=== PATIENT | male | born 1950 | race Caucasian/White ===

== ENCOUNTER → 2016-12-05 | Outpatient (CLI) | payer BC ==
[2015-12-09 14:10] VITALS: BP 135/75; PULSE 84
[~2016-12-05] MED LIST: AMLO-110 PO; AMLO2.5T PO; CETI10TA84 PO; CLIN1LOT TOP; DEXT30TA7 PO; DTRSR/10 PO; FLUO20CA35 PO; FLUT1INH INH; LOSA100T65 PO; METO-478 PO; MULT-845 PO; RTXI100 IV; VALA500T60 PO
[2016-12-05 13:13] VITALS: BP 146/80; PULSE 72; TEMP 36.6; O2SAT 96
[2016-12-05 15:07] LABS: URINE APPEARANCE CLEAR (CLEAR); URINE BILIRUBIN NEG (NEG); URINE COLOR YELLOW; URINE NITRITE NEG (NEG); URINE PH 5.5 (4.5-7.5); URINE SPECIFIC GRAVITY 1.009 (1.000-1.030); UROBILINOGEN NEG (NEG)
[2016-12-05 15:18] LABS: MANUAL MICROSCOPIC REQUIRED? NO; REVIEW REQ? NO
--- NOTE | 2016-12-05 17:42 | Radiation Oncology Follow-Up ---
Radiation Oncology Follow-Up Date of Visit Dec 05, 2016. Reason For Visit Annual follow-up Radiation Completion Date 05/03/15 Diagnosis (1) Prostate cancer Status: Resolved Onset Date: 06/01/2014 Location: both lobes of the prostate Histology Subtype: adenocarcinoma Stage: lll Permanent Comment: Rise in PSA pretreatment PSA 5.51 Clinical stage T2a Status post ultrasound-guided biopsies, biopsy stage T2c Status post robotic prostatectomy 09/23/2014 Pathologic stage pT3a pN0 M0 Post prostatectomy rising PSA to 0.119 Status post completion of salvage radiation therapy 05/03/2015 received 7040 cGy Mantle cell lymphoma Completing systemic chemotherapy and plan for maintenance Rituxan Last Edited By: Octavia Lauren on Dec 09, 2015 15:56 History of Present Illness Mr. Souza has a 66-year-old male without a family history of prostate cancer. He is been followed with serial prostatespecific antigens. In August 2000 prostate-specific antigen was 1.14. In July 2012 3.02. 12/30/2013 prostatespecific antigen had increased to 4.28. 02/10/2014 prostate-specific antigen 4.47 and prostate-specific antigen 5.51. Because of these changes the patient was sent for evaluation to Dr. Gibbons. Dr. Gibbons performed a digital rectal exam which revealed a nodule in the right side of the prostate. He was staged as a clinical stage T2a. Biopsies were therefore recommended. On 06/01/2014 ultrasound-guided biopsies were performed. A total of 14 biopsies were taken. Two each from the left base, right base, left mid, right mid, left apex, right apex and one each from the left and right anterior. 2 of 2 biopsies from the left base were positive for an adenocarcinoma Shayne grade of 3+3 involving 25% and 5% of the core tissue sample respectively with no evidence of perineural invasion. One of 2 biopsies from the right base were positive for an adenocarcinoma Shayne grade of 4+4 involving 20% of the core tissue sample with no perineural invasion identified. 2 of 2 biopsies in the left mid gland revealed adenocarcinoma Shayne grade of 3+3 involving 10% of the core tissue with no perineural invasion identified. 2 of 2 biopsies in the right mid gland revealed an adenocarcinoma Shayne grade of 4+4 involving 50% of the core tissue with a single focus highly suspicious for vascular invasion and for perineural invasion. 2 of 2 biopsies from the left apex were positive for an adenocarcinoma Shayne grade of 3+4 involving 20% of the total tissue with no perineural invasion identified. 2 of 2 biopsies in the right apex were positive for an adenocarcinoma Shayne grade of 4+3 involving 60% of the core tissue with no perineural invasion identified. The single biopsy from the left and right anterior gland were benign. Therefore a total of 11 of 14 biopsies were positive. 4 biopsies were positive for 3+3, 2 biopsies were positive for [place] grade 3+4, two biopsies were positive for Shayne grade 4+3 and 3 biopsies were positive for Shayne grade 4+4. Case: [id number]. Patient had a staging workup including a whole body bone scan on June 12 which showed no evidence of metastatic disease. He also underwent a CT scan of the abdomen and pelvis which revealed some prostatic enlargement with calcifications and enlargement of the seminal vesicles but no evidence of metastatic disease. The patient is in the process of deciding on his treatment options. We were asked to see him to review with him his radiation treatment options. All options of treatment were reviewed with the patient and ultimately he made decision to undergo a prostatectomy. He had this performed at [facility] by Dr. Ambrocio Nava. He underwent a robotic prostatectomy on 09/23/2014. This revealed adenocarcinoma with a Shayne of 4+3. The primary Shayne pattern was 4. The secondary [place] pattern was 3. The tertiary [place] pattern was 5. There was a pelvic lymph node dissection. 10 lymph nodes were evaluated and were negative for metastatic disease. The margins were uninvolved by tumor. Pathologic stage was [id number] Following his prostatectomy Dr. Gibbons followed his PSAs. His PSA on 2014 was 0.97. The PSA on 11/12/2014 was 0.102 and the PSA on 11/27/2014 was 0.119. With a rising PSA he was referred to our office to discuss radiation therapy. He completed salvage radiation therapy 05/03/2015 and received 7040 cGy. He tolerated this well and at the end of treatment his AUA score was 11. Hormonal suppression was declined. Interim History Today he completed an AUA score sheet and gave a score of 3. Last year he gave a score of 12. These symptoms have greatly improved. He completed expanded prostate cancer index composite for clinical practice and gave a score of 2 of 12 in urinary incontinence symptoms. He gave a score of 2 of 12 in urinary irritation symptoms. He gave a score of 3 of 12 in bowel symptoms. He gave a score of 11 of 12 in sexual symptoms. He gave a score of 4 of 12 and hormonal vitality symptoms. His total was 21 of 60. He continues on the oxybutynin which she feels greatly helps his bladder symptoms. He sees Dr. Nava and has recheck PSAs. His last PSA was 09/08/2016 and this was 0.476. There has been a slow gradual rise in the PSA. This had been checked on a monthly basis through Dr. Grace's office also. With his history of mantle cell lymphoma he has been followed with PET scans. The most recent study was 06/19/2016. This showed no evidence of pathologically enlarged or FDG avid lymphadenopathy. Spleen was mildly enlarged but had decreased in size from 02/07/2016. No abnormal FDG localization is identified in the spleen. Continued decrease in size of a cystic lesion in the ventral left pelvis as compared to 02/07/2016 which has almost completely resolved. There is no abnormal FDG localization within this lesion. He continues on maintenance chemotherapy. He has a recheck PET scan scheduled for tomorrow. He does have mild dysuria at the very end of the penis. This occurs approximately 3 times per week. It is not persistent. He is concerned about possible infection and requested a urine evaluation today. Allergies Coded Allergies: Cortisone (Verified Adverse Reaction, Mild, painful reaction when received a cortisone injection , 07/17/16) Home Medications Scheduled Amlodipine (Norvasc), 2.5 MG PO DAILY Amlodipine (Norvasc), 5 MG PO DAILY Cetirizine (Zyrtec), 10 MG PO DAILY Fluoxetine (Prozac), 20 MG PO QAM Fluticasone Furoate-Vilanterol (Breo Ellipta), 1 PUFF INH DAILY Losartan Potassium (Cozaar), 100 MG PO QAM Metoprolol Succinate (Toprol Xl), 50 MG PO QAM Multiple Vitamins W/ Minerals (Centrum Silver Adult 50+), 1 TAB PO QAM Oxybutynin Chloride (Oxybutynin Chloride ER), 10 MG PO QAM Rituximab (Rituxan), 1 DOSE IV [id number] Valacyclovir (Valtrex), 500 MG PO QAM Scheduled PRN Clindamycin Phosphate (Topical (Cleocin-T), 1 APPLN TOP BID PRN for PRN Dextromethorphan-Guaifenesin (Mucinex Dm), 1 TAB PO Q12 PRN for Nasal Congestion Review of Systems Gastrointestinal: Symptoms: WNL GI Comments: No fiber supplements Oral: Symptoms: No Problems Other Oral Symptoms: Currently has canker sore - trouble eating and swallowing Respiratory: Symptoms: Productive Cough Respiratory Comments: Clear sputum;CPAP for sleep apnea; Sputum Character: Using an inhaler - new to pt;States feels all is improving ; Other Respiratory: Currently with chest congestion- taking OTC cold medicine ; Urinary: Symptoms: WNL Comments: Occass urine leakage of only drops-no pad required;1-2 voids/night ; Skin: Symptoms: No Problems Physical Exam Vital Signs Date Time Temp Pulse Resp B/P Pulse Ox O2 Delivery O2 Flow Rate FiO2 12/05/16 13:13 36.6 72 12 146/80 96 Pain: Side: Left Pain Location: Hemrrhoidal Pain Patient Pain Scale: 0 - 10 Initial Pain Intensity: 8.0 Pain Description: Burning Fatigue: None General Appearance: no apparent distress Eyes: normal inspection, EOMI ENT: normal ENT inspection, hearing grossly normal Neck: + thyroid abnormalities (the thyroid is enlarged. This is especially noted at the isthmus.) Respiratory/Chest: lungs clear, no respiratory distress, no accessory muscle use Cardiovascular: regular rate, rhythm, no gallop, no murmur Abdomen: non tender, soft Anal / Rectum: Rectal examination reveals the prostate bed to be flat. No rectal masses and no rectal bleeding. Neurologic/Psychiatric: no motor/sensory deficits, alert Lymphatic: no adenopathy Laboratory Studies Test 09/08/16 10:25 10/16/16 10:35 11/03/16 11:32 12/05/16 14:15 Lactate Dehydrogenase 168 U/L (87-241) Prostate Specific Antigen 0.476 ng/ml (0.000-4.000) Free Prostate Specific Antigen 0.03 ng/ml Percent Free Prostate Specific Ag % Thyroid Stimulating Hormone (TSH) 0.427 uIu/ml (0.300-4.500) White Blood Count 5.31 K/uL (4.8-10.8) 5.20 K/uL (4.8-10.8) Red Blood Count 4.02 M/uL (4.7-6.1) 4.07 M/uL (4.7-6.1) Hemoglobin 14.0 g/dL (14.0-18.0) 13.9 g/dL (14.0-18.0) Hematocrit 38.1 % (42-52) 38.1 % (42-52) Mean Corpuscular Volume 94.8 fL (80-100) 93.6 fL (80-100) Mean Corpuscular Hemoglobin 34.8 pg (25-34) 34.2 pg (25-34) Mean Corpuscular Hemoglobin Concent 36.7 g/dl (32-36) 36.5 g/dl (32-36) Platelet Count 175 K/uL (130-400) 158 K/uL (130-400) Mean Platelet Volume 9.6 fL (7.4-10.4) 9.6 fL (7.4-10.4) Neutrophils (%) (Auto) 66.3 % 68.7 % Lymphocytes (%) (Auto) 8.3 % 9.2 % Monocytes (%) (Auto) 19.0 % 16.5 % Eosinophils (%) (Auto) 5.8 % 5.2 % Basophils (%) (Auto) 0.4 % 0.2 % Neutrophils # (Auto) 3.52 K/uL (1.4-6.5) 3.57 K/uL (1.4-6.5) Lymphocytes # (Auto) 0.44 K/uL (1.2-3.4) 0.48 K/uL (1.2-3.4) Monocytes # (Auto) 1.01 K/uL (0.11-0.59) 0.86 K/uL (0.11-0.59) Eosinophils # (Auto) 0.31 K/uL (0-0.5) 0.27 K/uL (0-0.5) Basophils # (Auto) 0.02 K/uL (0-0.2) 0.01 K/uL (0-0.2) RDW Standard Deviation 46.0 fL (36.4-46.3) 44.1 fL (36.4-46.3) RDW Coefficient of Variation 13.2 % (11.5-14.5) 12.9 % (11.5-14.5) Immature Granulocyte % (Auto) 0.2 % 0.2 % Immature Granulocyte # (Auto) 0.01 K/uL (0.00-0.02) 0.01 K/uL (0.00-0.02) Sodium Level 140 mmol/L (136-145) 137 mmol/L (136-145) Potassium Level 3.7 mmol/L (3.5-5.1) 3.5 mmol/L (3.5-5.1) Chloride Level 103 mmol/L (98-107) 101 mmol/L (98-107) Carbon Dioxide Level 28 mmol/L (21-32) 30 mmol/L (21-32) Anion Gap 9.0 mmol/L (3-11) 6.0 mmol/L (3-11) Blood Urea Nitrogen 17 mg/dl (7-18) 14 mg/dl (7-18) Creatinine 1.10 mg/dl (0.60-1.40) 1.00 mg/dl (0.60-1.40) Est Creatinine Clear Calc Drug Dose 76.5 ml/min 84.1 ml/min Estimated GFR () 80.6 90.5 Estimated GFR (Non- 69.6 78.1 BUN/Creatinine Ratio 15.4 (10-20) 13.6 (10-20) Random Glucose 87 mg/dl (70-99) 110 mg/dl (70-99) Calcium Level 9.1 mg/dl (8.5-10.1) 8.8 mg/dl (8.5-10.1) Magnesium Level 2.2 mg/dl (1.8-2.4) 2.2 mg/dl (1.8-2.4) Total Bilirubin 0.4 mg/dl (0.2-1) 0.5 mg/dl (0.2-1) Aspartate Amino Transferase (AST) 19 U/L (15-37) 21 U/L (15-37) Alanine Aminotransferase (ALT) 44 U/L (12-78) 46 U/L (12-78) Alkaline Phosphatase 73 U/L (45-117) 75 U/L (45-117) Total Protein 7.2 gm/dl (6.4-8.2) 7.1 gm/dl (6.4-8.2) Albumin 3.9 gm/dl (3.4-5.0) 3.8 gm/dl (3.4-5.0) Globulin 3.3 gm/dl (2.5-4.0) 3.3 gm/dl (2.5-4.0) Albumin/Globulin Ratio 1.2 (0.9-2) 1.2 (0.9-2) Urine Color YELLOW Urine Appearance CLEAR (CLEAR) Urine pH 5.5 (4.5-7.5) Urine Specific [place] 1.009 (1.000-1.030) Urine Protein NEG (NEG) Urine Glucose (UA) NEG (NEG) Urine Ketones NEG (NEG) Urine Occult Blood NEG (NEG) Urine Nitrite NEG (NEG) Urine Bilirubin NEG (NEG) Urine Urobilinogen NEG (NEG) Urine Leukocyte Esterase NEG (NEG) Assessment & Plan Plan: Patient underwent evaluation with urinalysis and urine C&S. He'll be notified as to the results. He is scheduled her for PET scan tomorrow. We discussed the thyromegaly. He stated that this is currently under investigation and being followed. We will review any abnormalities on the PET CT tomorrow. Continue follow-up with urology. He is seeing Dr. Nava in 3 weeks. He stated he usually has a PSA prior to that visit. I told him he should go forward with having the PSA prior to that visit. We asked him to return to our office in 1 year. I will review the thyroid changes with Dr. Grace. Total Time In Follow-Up I spent 20 minutes speaking to the patient and performing examination. I spent 20 minutes reviewing information and completing this note. Copy To Grzegorz Grace D.O.; Kulwant Gomez M.D.; Ambrocio Nava M.D.
--- NOTE | 2017-01-03 11:43 | CODING QUERY MEDICAL NECESSITY ---
CQSUPPORTING DIAGNOSIS NEEDED A supporting diagnosis is required for the test/procedure performed on this patient in order for us to be reimbursed by the patient's insurance. Please provide a supporting diagnosis for the following test/procedure listed below next to the test name along with your signature. *If there is no additional diagnosis for this patient that would support the following test/procedure please document that below next to the test/procedure. Test(s)/Procedure(s) that require a supporting diagnosis: DOS 12/05/16 URINE CULTURE ORDERED BY NICOLAS STARR Provider Signature: Date: Thank you [facility] Once completed, please kindly fax back to [phone] For questions please call [phone]
== END | disposition home or self-care (01) ==
LOC: C.ONC 12:22
PROVIDERS: ATTEND Physician Assistant Medical
DX: Z08 Encounter for follow-up examination after completed treatment for malignant neoplasm (principal); Z92.3 Personal history of irradiation; Z85.46 Personal history of malignant neoplasm of prostate

== ENCOUNTER → 2016-12-06 | Outpatient (CLI) | payer BC ==
--- NOTE | 2016-12-06 13:45 | DIAGNOSTIC IMAGING REPORT ---
PET/CT HISTORY: Lymphoma MANTLE CELL LYMPHOMA TECHNIQUE: PET/CT was performed from the base of the skull through the pelvis following the intravenous administration of 15.2 mCi of F18-FDG. Non-contrast CT imaging was performed over the same range without breath-hold for attenuation correction of PET images and anatomic correlation, but not for primary interpretation as it is not of standard diagnostic quality. CT DOSE: COMPARISON: 06/19/2016 FINDINGS: HEAD AND NECK: There is no FDG-avid disease or significant lymphadenopathy in the imaged portions of the head and the neck. Enlarged thyroid unchanged CHEST: There is no FDG-avid disease in the chest. There is no axillary, mediastinal, or hilar lymphadenopathy. There is no pleural or pericardial effusion. There is no air-space disease or suspicious lung nodule. Unchanging nodule anterior mediastinum unchanged. No abnormal metabolic activity characteristics. ABDOMEN/PELVIS: Below the diaphragm, tracer is distributed physiologically in the gastrointestinal and genitourinary tracts. There is no significant lymphadenopathy and no FDG-avid disease. Interval resolution of the procedure described cystic process MUSCULOSKELETAL: There is no FDG-avid or destructive bone lesion. IMPRESSION: There is no definite evidence of recurrent FDG-avid disease. Electronically signed by: Gualberto Grayson M.D. 12/06/2016 1:44 PM Dictated Date/Time: 12/06/2016 1:37 PM
== END | disposition home or self-care (01) ==
LOC: C.PET 09:30
PROVIDERS: ATTEND Internal Medicine Hematology & Oncology
DX: C83.11 Mantle cell lymphoma, lymph nodes of head, face, and neck (principal)

== ENCOUNTER → 2017-01-05 | Outpatient (CLI) | payer BC ==
[~2017-01-05] VITALS: Ht 177.8 cm; Wt 111.1 kg
[2017-01-05 16:04] VITALS: BP 156/90; PULSE 69; Ht 177.8 cm; Wt 111.1 kg
== END | disposition home or self-care (01) ==
LOC: C.NEUR 14:24
PROVIDERS: ATTEND Physician Assistant
DX: G47.33 Obstructive sleep apnea (adult) (pediatric) (principal)

== ENCOUNTER → 2017-06-13 | Outpatient (CLI) | payer BC ==
[~2017-06-13] MED LIST changes: -METO-478 PO; +METO1TAB31 PO
--- NOTE | 2017-06-13 11:17 | DIAGNOSTIC IMAGING REPORT ---
PET/CT HISTORY: LYMPHOMA TECHNIQUE: PET/CT was performed from the base of the skull through the pelvis following the intravenous administration of 15.4 mCi of F18-FDG. Non-contrast CT imaging was performed over the same range without breath-hold for attenuation correction of PET images and anatomic correlation, but not for primary interpretation as it is not of standard diagnostic quality. CT DOSE: COMPARISON: PET CT 12/06/2016. FINDINGS: HEAD AND NECK: There is no FDG-avid disease or significant lymphadenopathy in the imaged portions of the head and the neck. Patchy mild FDG uptake within the multinodular goiter remains unchanged. CHEST: There is no FDG-avid disease in the chest. There is no axillary, mediastinal, or hilar lymphadenopathy. There is no pleural or pericardial effusion. There is no air-space disease or suspicious lung nodule. Stable soft tissue anterior mediastinal lobular mass. This does not demonstrate abnormal FDG uptake. ABDOMEN/PELVIS: Below the diaphragm, tracer is distributed physiologically in the gastrointestinal and genitourinary tracts. There is no significant lymphadenopathy and no FDG-avid disease. MUSCULOSKELETAL: There is no FDG-avid or destructive bone lesion. IMPRESSION: No significant change compared to the prior study. No FDG avid disease identified. Electronically signed by: Sony Cronin M.D. 06/13/2017 11:16 AM Dictated Date/Time: 06/13/2017 10:59 AM
== END | disposition home or self-care (01) ==
LOC: C.PET 07:47
PROVIDERS: ATTEND Internal Medicine Hematology & Oncology
DX: C83.11 Mantle cell lymphoma, lymph nodes of head, face, and neck (principal)

== ENCOUNTER → 2017-12-05 | Outpatient (CLI) | payer BC ==
[~2017-12-05] MED LIST changes: +METO-478 PO; -METO1TAB31 PO; +TRIAPOW6; +[UNRECOGNIZED DRUG - OTHER]; +benadryl
[2017-12-05 13:22] VITALS: BP 138/76; PULSE 79; TEMP 36.6; O2SAT 95
--- NOTE | 2017-12-05 16:39 | Radiation Oncology Follow-Up ---
Radiation Oncology Follow-Up Date of Visit Dec 05, 2017. Reason For Visit annual follow up Radiation Completion Date 05/03/15 Diagnosis (1) Prostate cancer Status: Resolved Onset Date: 06/01/2014 Location: Both lobes of the prostate Histology Subtype: Adenocarcinoma Stage: lll Permanent Comment: Rise in PSA pretreatment PSA 5.51 Clinical stage T2a Status post ultrasound-guided biopsies, biopsy stage T2c Status post robotic prostatectomy 09/23/2014 Pathologic stage pT3a pN0 M0 Post prostatectomy rising PSA to 0.119 Status post completion of salvage radiation therapy 05/03/2015 received 7040 cGy Mantle cell lymphoma Completing systemic chemotherapy and plan for maintenance Rituxan Last Edited By: Octavia Lauren on Dec 09, 2015 15:56 History of Present Illness Mr. Souza has a family history of prostate cancer. He is been followed with serial prostatespecific antigens. In August 2000 prostate-specific antigen was 1.14. In July 2012 3.02. 12/30/2013 prostatespecific antigen had increased to 4.28. 02/10/2014 prostate-specific antigen 4.47 and prostate-specific antigen 5.51. Because of these changes the patient was sent for evaluation to Dr. Gibbons. Dr. Gibbons performed a digital rectal exam which revealed a nodule in the right side of the prostate. He was staged as a clinical stage T2a. Biopsies were therefore recommended. On 06/01/2014 ultrasound-guided biopsies were performed. A total of 14 biopsies were taken. Two each from the left base, right base, left mid, right mid, left apex, right apex and one each from the left and right anterior. 2 of 2 biopsies from the left base were positive for an adenocarcinoma Shayne grade of 3+3 involving 25% and 5% of the core tissue sample respectively with no evidence of perineural invasion. One of 2 biopsies from the right base were positive for an adenocarcinoma Shayne grade of 4+4 involving 20% of the core tissue sample with no perineural invasion identified. 2 of 2 biopsies in the left mid gland revealed adenocarcinoma [place] grade of 3+3 involving 10% of the core tissue with no perineural invasion identified. 2 of 2 biopsies in the right mid gland revealed an adenocarcinoma [place] grade of 4+4 involving 50% of the core tissue with a single focus highly suspicious for vascular invasion and for perineural invasion. 2 of 2 biopsies from the left apex were positive for an adenocarcinoma [place] grade of 3+4 involving 20% of the total tissue with no perineural invasion identified. 2 of 2 biopsies in the right apex were positive for an adenocarcinoma [place] grade of 4+3 involving 60% of the core tissue with no perineural invasion identified. The single biopsy from the left and right anterior gland were benign. Therefore a total of 11 of 14 biopsies were positive. 4 biopsies were positive for 3+3, 2 biopsies were positive for Lynch[place] grade 3+4, two biopsies were positive for Shayne grade 4+3 and 3 biopsies were positive for Lynchburg grade 4+4. Case: [id number]. Patient had a staging workup including a whole body bone scan on June 12 which showed no evidence of metastatic disease. He also underwent a CT scan of the abdomen and pelvis which revealed some prostatic enlargement with calcifications and enlargement of the seminal vesicles but no evidence of metastatic disease. The patient is in the process of deciding on his treatment options. We were asked to see him to review with him his radiation treatment options. All options of treatment were reviewed with the patient and ultimately he made decision to undergo a prostatectomy. He had this performed at [facility] by Dr. Ambrocio Nava. He underwent a robotic prostatectomy on 09/23/2014. This revealed adenocarcinoma with a [place] of 4+3. The primary Shayne pattern was 4. The secondary Shayne pattern was 3. The tertiary Shayne pattern was 5. There was a pelvic lymph node dissection. 10 lymph nodes were evaluated and were negative for metastatic disease. The margins were uninvolved by tumor. Pathologic stage was [id number] Following his prostatectomy Dr. Gibbons followed his PSAs. His PSA on 2014 was 0.97. The PSA on 11/12/2014 was 0.102 and the PSA on 11/27/2014 was 0.119. With a rising PSA he was referred to our office to discuss radiation therapy. He completed salvage radiation therapy 05/03/2015 and received 7040 cGy. He tolerated this well and at the end of treatment his AUA score was 11. Hormonal suppression was declined. Interim History He has been doing well over this past year. He feels his urinary status is stable but did have an increase in his AUA score. He gave a score of 10. He is on medication to help with the mild incontinence. He started this approximately 6 months ago. He does continue to have some mild incontinence. He completed and expanded prostate cancer index composite for clinical practice and gave a score of 2 of 12 and urinary incontinence. He gave a score of 4 of 12 and urinary irritation. He gave a score of 6 of 12 and bowel symptoms. He gave a score of 12 of 12 in sexual symptoms. He gave a score of 0 12 and hormonal vitality symptoms. His total was 24 of 60. He has had recheck PSAs. He had a PSA June 15, 2017 and that was 0.734. He had a PSA of 1.060 September 18, 2017. Laboratory studies are being followed closely by urology and medical oncology. He did speak to urology about the erectile dysfunction. Allergies Coded Allergies: Cortisone (Verified Adverse Reaction, Mild, painful reaction when received a cortisone injection , 07/17/16) Home Medications Scheduled Amlodipine (Norvasc), 5 MG PO DAILY Cetirizine (Zyrtec), 10 MG PO DAILY Fluoxetine (Prozac), 20 MG PO QAM Fluticasone Furoate-Vilanterol (Breo Ellipta), 1 PUFF INH DAILY Losartan Potassium (Cozaar), 100 MG PO QAM Metoprolol Succinate (Toprol Xl), 50 MG PO QAM Multiple Vitamins W/ Minerals (Centrum Silver Adult 50+), 1 TAB PO QAM Oxybutynin Chloride (Oxybutynin Chloride ER), 10 MG PO QAM Rituximab (Rituxan), 1 DOSE IV [id number] Valacyclovir (Valtrex), 500 MG PO QAM [neltrexone], 3 MG MWF Scheduled PRN Clindamycin Phosphate (Topical (Cleocin-T), 1 APPLN TOP BID PRN for PRN Dextromethorphan-Guaifenesin (Mucinex Dm), 1 TAB PO Q12 PRN for Nasal Congestion Triamcinolone (Bulk) (Triamcinolone), for rash Miscellaneous Medications [benadryl] Review of Systems Gastrointestinal: Symptoms: WNL GI Comments: No fiber supplements Oral: Symptoms: No Problems Other Oral Symptoms: Currently has canker sore - trouble eating and swallowing Respiratory: Symptoms: WNL Respiratory Comments: Clear sputum;CPAP for sleep apnea; Sputum Character: Using an inhaler - new to pt;States feels all is improving ; Other Respiratory: Currently with chest congestion- taking OTC cold medicine ; Urinary: Symptoms: WNL Comments: Occass urine leakage of only drops-no pad required;1-2 voids/night ; Skin: Symptoms: No Problems Physical Exam Vital Signs Date Time Temp Pulse Resp B/P (MAP) Pulse Ox O2 Delivery O2 Flow Rate FiO2 12/05/17 13:22 36.6 79 20 138/76 95 Fatigue: None General Appearance: no apparent distress Eyes: normal inspection, EOMI ENT: normal ENT inspection, hearing grossly normal Respiratory/Chest: lungs clear, no respiratory distress, no accessory muscle use Cardiovascular: regular rate, rhythm, no gallop, no murmur Abdomen: non tender, soft, no organomegaly Anal / Rectum: Normal sphincter tone. Prostate bed is flat. No rectal masses no rectal bleeding. Extremities: no pedal edema Neurologic/Psychiatric: no motor/sensory deficits, alert, normal mood/affect Skin: warm/dry Lymphatic: no adenopathy Pain Management Patient Reports Pain: No Side: Left Pain Location: None Patient Preferred Pain Scale: 0 - 10 Initial Pain Intensity: 0.0 Pain Management Plan He denies pain therefore requires no pain management. Laboratory Laboratory Results: were reviewed Laboratory Comments: Reviewed in the interim history. Pathology Pathology Results: were reviewed, and pertinent findings noted in HPI Imaging Imaging Studies: were reviewed, and pertinent findings noted in HPI Assessment & Plan Plan: Continue regular follow-up with his primary care provider, medical oncology, and urology. He will be having a recheck PSA in mid December. He has a follow-up appointment with Dr. Grace. He is scheduled for recheck PET scan following up on his history of mantle cell lymphoma. We discussed the rising PSA. We reviewed biochemical failure and possible treatment if needed. This will be determined by medical oncology and urology. We asked him to return to our office in 1 year. He may call if he has any questions or concerns in the interim. Total Time In Follow-Up I spent 20 minutes speaking to the patient in performing examination. I spent 15 minutes reviewing information and completing this note. Copy To Grzegorz Grace D.O.; Kulwant Gomez M.D.; Ambrocio Nava M.D.
== END | disposition home or self-care (01) ==
LOC: C.ONC 13:07
PROVIDERS: ATTEND Physician Assistant Medical
DX: Z08 Encounter for follow-up examination after completed treatment for malignant neoplasm (principal); Z92.3 Personal history of irradiation; Z85.46 Personal history of malignant neoplasm of prostate

== ENCOUNTER → 2017-12-18 | Outpatient (CLI) | payer BC ==
[~2017-12-18] MED LIST changes: -AMLO-110 PO; +OPTIRAY 320 IV PRN
--- NOTE | 2017-12-18 15:00 | DIAGNOSTIC IMAGING REPORT ---
ABD/PELVIS IV AND ORAL CONT CLINICAL HISTORY: 67 years-old Male presenting with MANTLE CELL LYMPHOMA C83.11, 6 month follow-up. TECHNIQUE: Multidetector CT of the abdomen and pelvis was performed after the administration of oral and intravenous contrast. IV contrast: 93 mL of Optiray 320. A dose lowering technique was used consistent with the principles of ALARA (as low as reasonably achievable). COMPARISON: 01/02/2016 and PET/CT from 06/13/2017. CT DOSE (mGy.cm): The estimated cumulative dose is 1417.34. FINDINGS: Sales Program Coordinator topogram: Vasectomy clips noted. Lung bases: Punctate peripheral solid nodule in the right lower lobe (series 6 image 8). Normal heart size. No pericardial or pleural effusion. Liver: Congenital hypoplasia of the medial segments of the left hepatic lobe. Subcentimeter hypodensity in the lateral segment of the left hepatic lobe likely hepatic cyst or hamartoma. Patent hepatic vasculature. Biliary: No intrahepatic or extrahepatic biliary ductal dilatation. Normal gallbladder. Pancreas: Moderate parenchymal atrophy. Spleen: Normal. Adrenal glands: Normal. Kidneys and ureters: Hypodensity in the left kidney possibly cyst or angiomyolipoma but too small to characterize. No nephrolithiasis. No hydronephrosis. Ureters normal. Bladder: Circumferential bladder wall thickening. Pelvic organs: The patient is status post prostatectomy. No suspicious nodular enhancement at the ureteral anastomosis. Bowel: Moderate stool burden in the right and transverse colon. An anastomotic suture line is evident in the ascending colon, which may be an enterocolic anastomosis. No bowel obstruction. The appendix is absent. Peritoneal cavity: Trace free fluid in the pelvis. No free intraperitoneal gas. 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 Lymph nodes: No enlarged lymph nodes in the abdomen or pelvis. Vasculature: Atherosclerosis of the normal caliber abdominal aorta. IVC patent. Abdominal wall: Postsurgical changes of the midline abdominal wall. Musculoskeletal: Degenerative changes of the spine focally at L5-S1. Bilateral pars defects of L5 with grade 2 anterolisthesis of L5 on S1. IMPRESSION: 1. Postsurgical changes of prostatectomy. No suspicious nodular enhancement at the ureteral anastomosis. 2. No lymphadenopathy. 3. Postsurgical changes of the right colon with suspected enterocolic anastomosis. No bowel obstruction. 4. Punctate solid pulmonary nodule in the right lower lobe. Electronically signed by: Ricardo Marquez M.D. 12/18/2017 2:59 PM Dictated Date/Time: 12/18/2017 2:51 PM
--- NOTE | 2017-12-18 15:06 | DIAGNOSTIC IMAGING REPORT ---
CT (CHEST) THORAX WITH CLINICAL HISTORY: 67 years-old Male presenting with MANTLE CELL LYMPHOMA C83.11. TECHNIQUE: Multidetector CT imaging of the chest was performed after the administration of intravenous contrast. IV contrast: 93 mL of Optiray 320. A dose lowering technique was used consistent with the principles of ALARA (as low as reasonably achievable). COMPARISON: 09/14/2015 and PET/CT from 06/13/2017. CT DOSE (mGy.cm): The estimated cumulative dose is 1417.34 mGy.cm. FINDINGS: Organ Assembler topogram: Vasectomy clips noted. On soft tissue windows, significant multinodular goiter, unchanged. Mass effect on the trachea unchanged. 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 No axillary, supraclavicular, hilar, or mediastinal lymphadenopathy. Atherosclerosis of the aorta. Normal heart size. Minimal coronary artery calcification. No pericardial or pleural effusion. Upper abdomen normal. On lung windows, minimal dependent changes likely atelectasis. Peripheral/subpleural solid 3 mm nodule in the dependent portion of the right lower lobe (series 4 image 145), unchanged. No other focal nodule or infiltrate. Airways patent. On bone windows, degenerative changes of the spine. IMPRESSION: 1. No evidence of intrathoracic metastatic disease. No lymphadenopathy. 2. Multinodular goiter with significant regional mass effect, unchanged. 3. No acute intrathoracic pathology. Electronically signed by: Ricardo Marquez M.D. 12/18/2017 3:05 PM Dictated Date/Time: 12/18/2017 2:59 PM
== END | disposition home or self-care (01) ==
LOC: C.CTS 14:20
PROVIDERS: ATTEND Internal Medicine Hematology & Oncology
DX: C83.11 Mantle cell lymphoma, lymph nodes of head, face, and neck (principal)

== ENCOUNTER → 2018-01-15 | Outpatient (CLI) | payer BC ==
[~2018-01-15] MED LIST changes: -OPTIRAY 320 IV PRN
== END | disposition home or self-care (01) ==
LOC: C.PATHSPEC 17:42
PROVIDERS: ATTEND Plastic Surgery
DX: D03.61 Melanoma in situ of right upper limb, including shoulder (principal)

== ENCOUNTER → 2018-01-17 | Outpatient (CLI) | payer BC ==
[~2018-01-17] VITALS: Ht 177.8 cm; Wt 94.3 kg
[2018-01-17 15:30] VITALS: BP 157/87; PULSE 71; Ht 177.8 cm; Wt 94.3 kg
== END | disposition home or self-care (01) ==
LOC: C.NEUR 15:19
PROVIDERS: ATTEND Physician Assistant
DX: G47.33 Obstructive sleep apnea (adult) (pediatric) (principal)